=== PATIENT | female | born 1955 | race Caucasian/White ===

== ENCOUNTER 2019-10-01 20:24 | Observation (INO) | payer SELFPAY ==
[2019-10-01] VITALS (8 sets, daily range): BP systolic 131–176; BP diastolic 70–93; PULSE 81–125; RESP 20–24; TEMP 37.2; O2SAT 88–98
--- NOTE | ~2019-10-01 | XR_ITS ---
EXAMINATION: XR chest 2V DATE: 10/01/2019 21:15 INDICATION: COPD presenting with cough and shortness of breath TECHNIQUE: PA and lateral views of the chest were obtained. COMPARISON: Chest radiograph dated 01/07/2019 FINDINGS: Bronchial wall thickening and new airspace opacities in the right mid and bilateral lower lung zones concerning for pneumonia. No pleural effusion or pneumothorax. The cardiomediastinal silhouette is no rmal. Thoracolumbar dextroscoliosis with mild to moderate spondylosis. Cholecystectomy clips in the r ight upper quadrant. IMPRESSION: 1. Patchy airspace opacities in the right mid and bilateral lower lung zones concerning for pneumonia . Reviewed, dictated and finalized at location A. ENGINEER IMPRESSION: 1. Patchy airspace opacities in the right mid and bilateral lower lung zones co ncerning for pneumonia.
--- NOTE | 2019-10-01 20:53 | ED.SOB ---
HPI - SOB/Dyspnea General Chief Complaint: Shortness of Breath/Dyspnea Stated Complaint: Cough and congestion Time Seen by Provider: 10/01/19 20:53 Source: patient Mode of arrival: ambulatory Limitations: no limitations History of Present Illness HPI Narrative: 63-year-old woman with a history of type 2 diabetes, COPD and pneumonia comes in today complaining of 2 weeks of progressively worse cough and shortness of breath. She states her cough is productive of green sputum and she has some chest pain but only when she coughs. Last breathing treatment was this morning. She had some vomiting 3 days ago. She denies abdominal pain, fever, diarrhea, calf tenderness, and rash. MD elicited complaint: shortness of breath and cough Pertinent past history: COPD, diabetes and pneumonia Onset (ago): week(s) (2) Context: recent illness Timing: constant and progressively worsening Severity: moderate Exacerbating factors: lying flat, coughing and deep breaths Relieving factors: nothing Known history of: COPD and diabetes Associated symptoms: chest pain, cough, wheezing, sputum production and nausea/vomiting Treatment prior to arrival: bronchodilator Related Data Home oxygen amount: 2 liters (at night) Home Medications Medication Instructions Recorded Confirmed albuterol sulfate [ProAir HFA] 2 puff INHALATION QID PRN 10/01/19 10/01/19 fluoxetine 60 mg PO DAILY 10/01/19 10/01/19 furosemide [Lasix] 40 mg PO DAILY 10/01/19 10/01/19 insulin glargine [Lantus U-100 See Rx Instructions .ROUTE .COMPLEX 10/01/19 10/01/19 Insulin] insulin lispro [Humalog U-100 25 unit SUBCUT TIDWM 10/01/19 10/01/19 Insulin] lisinopril 20 mg PO DAILY 10/01/19 10/01/19 metoprolol tartrate 50 mg PO Q12H 10/01/19 10/01/19 pravastatin 20 mg PO DAILY 10/01/19 10/01/19 ranitidine HCl 150 mg PO BID 10/01/19 10/01/19 zolpidem 10 mg PO HS 10/01/19 10/01/19 Allergies Allergy/AdvReac Type Severity Reaction Status Date / Time No Known Allergies Allergy Verified 10/01/19 20:57 Review of Systems Constitutional: Constitutional: Denies chills, Reports fatigue, Denies fever(s) and Denies weakness Eyes: Eyes: Denies change in vision and Denies photophobia ENT: Denies dysphagia, Reports nasal congestion and Denies sore throat Cardiovascular: Cardiovascular: Reports chest pain and Denies radiating jaw, neck or arm pain Respiratory: Respiratory: Reports as per HPI, Reports chest congestion, Reports cough, Reports dyspnea and Reports wheezing Gastrointestinal: Gastrointestinal: Reports as per HPI, Denies abdominal pain, Denies nausea and Reports vomiting Genitourinary: Genitourinary: Denies hematuria and Denies dysuria Musculoskeletal: Musculoskeletal: Denies arthralgias and Denies joint swelling Integumentary/Breasts: Skin/Breast: Denies pruritus, Denies erythema and Denies rash Neurologic: Denies vertigo, Denies dizziness and Denies syncope Psychiatric: Psychiatric: Denies anxiety and Denies depression Hematologic/Lymphatic: Hematologic/Lymphatic: Denies easy bleeding and Denies easy bruising Allergic/Immunologic: Allergic/Immunologic: Denies lip swelling, Denies throat swelling and Reports wheezing PMFSH Past Medical History Medical History Anxiety COPD (chronic obstructive pulmonary disease) Dyslipidemia GERD (gastroesophageal reflux disease) Hypertension T2DM (type 2 diabetes mellitus) Surgical History Surgical History H/O section Hx of appendectomy Hx of cholecystectomy Social History Social History (Updated 10/01/19 @ 22:17 by Berlin Coleman MD) Smoking status: Never smoker Alcohol intake: never Substance use: never Living arrangements: with family Exam Const: General: alert Nutritional Appearance: obese Orientation/consciousness: patient oriented x3 Limitations: no limitations Other: [id number]
[2019-10-01] MEDS: IPRATROPIUM 0.5 MG/ALBUTEROL SULFATE 2.5 MG AMPUL.NEB 3 ML INHALATION (21:19)
[2019-10-01] MEDS: methylPREDNISolone SOD SUCC 40 MG VIAL 80 MG IV PUSH (21:23)
--- NOTE | 2019-10-01 21:23 | ECG_ITS ---
Measurements Intervals [place] Rate: 125 P: 68 VA: 154 QRS: -41 QRSD: 82 T: 52 QT: 322 QTc: 465 Interpretive Statements SINUS TACHYCARDIA LEFT AXIS DEVIATION DELAYED PRECORDIAL R/S TRANSITION BASELINE ARTIFACT- I, III, AVR, AVL, AVF, V2 ABNORMAL ECG Electronically Signed On 10-02-2019 7:36:48 MIXER LEVER OPERATOR by Amanuel Quiroga D.O.
[2019-10-01] MEDS: ALBUTEROL SULFATE NEB 2.5 MG/3 ML INH INHALATION (21:25)
[2019-10-01] MEDS: SODIUM CHLORIDE 0.9% IV 500 ML 999 ML IV CONT (21:33)
[2019-10-01 21:38] LABS: Influenza Control Valid (Valid)
--- NOTE | 2019-10-01 22:05 | PC.NURSE ---
Pt attempted to provide urine sample. pt unable to provide at this time. edp aware, edp does not want antibiotics started until urine sample obtained.
[2019-10-01 22:26] LABS: Basophils Absolute Auto 0.03 K/mm3 (0.00-0.10); Basophils Percent Auto 0.3 % (0.0-1.0); Hematocrit 38.2 % (35.0-42.0); Hemoglobin 12.3 g/dL (11.7-13.8); Immature Granulocyte Absolute 0.09 K/mm3 (0.00-0.00); Immature Granulocyte Percent A 0.8 % (0.0-0.0); Lymphocytes Absolute Auto 1.29 K/mm3 (1.10-4.50); Lymphocytes Percent Auto 11.5 % (18.0-42.0); Mean Corpuscular HGB Conc 32.2 g/dL (32.0-36.0); Mean Corpuscular Hemoglobin 31.5 pg (27.0-31.0); Mean Corpuscular Volume 97.7 fL (78.0-102.0); Mean Platelet Volume 10.6 fl (9.2-11.8); Monocytes Absolute Auto 0.77 K/mm3 (0.10-0.90); Monocytes Percent Auto 6.9 % (2.0-11.0); Neutrophils Absolute Auto 9.1 K/mm3 (1.7-7.2); Neutrophils Percent Auto 80.5 % (50.0-70.0); Platelet Count Result 375 K/mm3 (150-420); Red Blood Count 3.91 M/mm3 (4.20-5.40); Red Cell Distribution Width 12.9 % (11.6-14.4); White Blood Count 11.2 K/mm3 (4.8-10.8)
[2019-10-01 22:40] LABS: Partial Thromboplastin Time 33.9 SEC (22.3-31.6); Prothrombin Time 10.4 Seconds (9.64-11.0)
[2019-10-01 22:41] LABS: Alanine Aminotransferase 15 U/L (14-59); Alkaline Phosphatase 92 U/L (46-116); Aspartate Amino Transferase 13 U/L (15-37); Bilirubin,Total 0.4 mg/dL (0.00-1.00); Blood Urea Nitrogen 25 mg/dL (7-18); Calcium 9.9 mg/dL (8.5-10.1); Carbon Dioxide 22 mmol/L (21-32); Chloride 101 mmol/L (98-108); Estimated CRCL calculation 33 ml/min; Estimated Glomerular Filt Rate 32; Glucose 213 mg/dL (70-99); Osmolality Calculated 296 mOsm/kg (285-295); Sodium 138 mmol/L (136-145); Total Protein 8.4 g/dL (6.4-8.2)
[2019-10-01 22:46] LABS: Lactic Acid Reflex 1.5 mmol/L (0.4-2.0)
[2019-10-01 22:47] LABS: CRP < 0.2 mg/dL (0.0-0.9)
[2019-10-01 22:56] LABS: Add Urine Microscopic? YES; Appearance Urine Cloudy (Clear); Bilirubin Urine Negative (Negative); Blood Urine 2+ (Negative); Color Urine Yellow (Yellow); Glucose Urine UA Negative (Negative); Ketones Urine 1+ (Negative); Leukocyte Esterase Ur 2+ LEU/UL (Negative); Nitrate Urine Negative (Negative); Protein Urine 2+ (Negative); Specific Grav Ur 1.015 (1.010-1.020); Urobilinogen Urine 0.2 mg/dL (0.2-1.0)
[2019-10-01 23:03] LABS: Squamous Epithelial Cell Urine Many /hpf (Few); WBC Urine >75 /hpf (0-3)
[2019-10-01 23:04] LABS: Bacteria Urine 4+ /hpf
--- NOTE | 2019-10-01 23:11 | PC.NURSE ---
REPORT TO RAE HUTCHISON
[2019-10-02] VITALS (18 sets, daily range): BP systolic 129–156; BP diastolic 66–78; PULSE 74–110; RESP 16–22; TEMP 36.3–36.6; O2SAT 93–96; BMI 43.0
[2019-10-02] MEDS: METOPROLOL TARTRATE 50 MG TAB PO ×3 (01:39→22:55)
[2019-10-02] MEDS: IPRATROPIUM 0.5 MG/ALBUTEROL SULFATE 2.5 MG AMPUL.NEB 3 ML INHALATION ×5 (01:39→23:39)
[2019-10-02] MEDS: SODIUM CHLORIDE 0.9% IV 1,000 ML 50 ML IV CONT (01:54)
--- NOTE | 2019-10-02 02:36 | ADMGEN ---
This patient, Vivian Carney, was admitted to 2nd Floor Room 208-2. Patient oriented to hospital policies and general routines including ID bracelet, bed and alarms, visiting hours, pain management, procedures, bathroom and other care routines, personal items, smoking policy, room service/diet, and visiting hours. Valuables list includes clothing, coat, house slippers, cell phone and cane. Information on how to activate the Rapid Response Team has been discussed. Patient are encouraged to report perceived risks to care and to ask questions if they do not understand what they are told or what they should do.
--- NOTE | 2019-10-02 03:01 | PC.NURSE ---
0150 [facility] pharmacy called and made recommendations for changes in frequency of pt's ranitidine.
[2019-10-02 06:13] LABS: Basophils Absolute Auto 0.03 K/mm3 (0.00-0.10); Basophils Percent Auto 0.3 % (0.0-1.0); Eosinophils Absolute Auto 0.01 K/mm3 (0.02-0.50); Eosinophils Percent Auto 0.1 % (1.0-6.0); Hematocrit 37.1 % (35.0-42.0); Hemoglobin 11.9 g/dL (11.7-13.8); Immature Granulocyte Absolute 0.14 K/mm3 (0.00-0.00); Immature Granulocyte Percent A 1.4 % (0.0-0.0); Lymphocytes Absolute Auto 0.29 K/mm3 (1.10-4.50); Mean Corpuscular HGB Conc 32.1 g/dL (32.0-36.0); Mean Corpuscular Hemoglobin 31.9 pg (27.0-31.0); Mean Corpuscular Volume 99.5 fL (78.0-102.0); Mean Platelet Volume 11.4 fl (9.2-11.8); Neutrophils Absolute Auto 9.2 K/mm3 (1.7-7.2); Neutrophils Percent Auto 94.2 % (50.0-70.0); Platelet Count Result 286 K/mm3 (150-420); Red Blood Count 3.73 M/mm3 (4.20-5.40); Red Cell Distribution Width 12.8 % (11.6-14.4); White Blood Count 9.8 K/mm3 (4.8-10.8)
[2019-10-02 06:25] LABS: Alanine Aminotransferase 14 U/L (14-59); Albumin Level 2.7 g/dL (3.4-5.0); Alkaline Phosphatase 92 U/L (46-116); Anion Gap 18.5 mmol/L (7-16); Aspartate Amino Transferase 16 U/L (15-37); Bilirubin,Total 0.3 mg/dL (0.00-1.00); Blood Urea Nitrogen 25 mg/dL (7-18); Calcium 9.3 mg/dL (8.5-10.1); Carbon Dioxide 22 mmol/L (21-32); Chloride 101 mmol/L (98-108); Estimated CRCL calculation 37 ml/min; Estimated Glomerular Filt Rate 37; Osmolality Calculated 305 mOsm/kg (285-295); Potassium 5.5 mmol/L (3.5-5.1); Sodium 136 mmol/L (136-145)
[2019-10-02 06:38] LABS: Glucose 434 mg/dL (70-99)
[2019-10-02] MEDS: methylPREDNISolone SOD SUCC 40 MG VIAL IV PUSH ×2 (09:51→22:55)
[2019-10-02] MEDS: lisinopriL 20 MG TABLET PO (09:52)
[2019-10-02] MEDS: FUROSEMIDE 40 MG TABLET PO (09:52)
[2019-10-02] MEDS: FLUOXETINE HCL 10 MG CAPSULE 60 MG PO (09:52)
[2019-10-02] MEDS: PRAVASTATIN SODIUM 20 MG TABLET PO (09:53)
[2019-10-02 10:08] LABS: Glucose Point of Care 390 (65-105)
--- NOTE | 2019-10-02 10:35 | PC.NURSE ---
Patient sleeping in bed quietly. Shows no signs of distress. Call light at side.
[2019-10-02 11:37] LABS: Glucose Point of Care 323 (65-105)
[2019-10-02] MEDS: BENZONATATE 100 MG CAPSULE 200 MG PO ×2 (13:29→17:14)
--- NOTE | 2019-10-02 14:07 | PM.IMHP ---
H&P: HPI History of Present Illness Chief complaint: Cough and congestion <AGUSTIN Oro - Last Filed: 10/02/19 14:45> Narrative: Vivian Carney is a 63 year old female that presented with shortness of breath and dyspnea. Patient has a past medical history anxiety, COPD, dyslipidemia, GERD, hypertension, and type 2 diabetes. According to the patient restarting coughing 3 weeks ago. she had a productive cough with greenish sputum. She also noted that she had nausea and vomiting a couple times with diarrhea. She also reported a feeling fatigued and dysuria while urinating. She noted that she uses home oxygen and also experience shortness of breath and dyspnea during that time. She decided to come to the ED once her cough became uncontrollable. Her vital signs 74 20, 93% 2 L nasal cannula , 65.5 and 155/66. She is being admitted for pneumonia and UTI with acute on chronic renal failure. While in the ER a chest x-ray was completed which indicated pneumonia a EKG indicated sinus tach heart rate in 125, UA positive for leukocytes and bacteria. Blood culture UA culture pending, white blood cells 11.2. Patient was given azithromycin Rocephin and Solu-Medrol and breathing treatments while in the ED. Patient denies CP, palpitation, extremity numbness, lightheadness, dizziness, constipation, diarrhea, or chills or fever. if condition continues improved to discharge patient tomorrow <AGUSTIN Oro - Last Filed: 10/02/19 14:45> Review of Systems Constitutional: Constitutional: Reports fatigue, Denies fever(s), Denies headache(s) and Reports weakness <AGUSTIN Oro - Last Filed: 10/02/19 14:45> Cardiovascular: Cardiovascular: Denies chest pain, Denies chest pain at rest, Denies chest pain with activity, Denies radiating jaw, neck or arm pain, Denies palpitations and Reports dyspnea <AGUSTIN Oro - Last Filed: 10/02/19 14:45> Respiratory: Respiratory: Reports chest congestion, Reports cough, Denies hemoptysis, Reports dyspnea and Reports wheezing <AGUSTIN Oro - Last Filed: 10/02/19 14:45> Gastrointestinal: Gastrointestinal: Denies melena, Denies coffee ground emesis, Denies constipation, Reports diarrhea, Reports nausea and Reports vomiting <GAGAN OroDivya - Last Filed: 10/02/19 14:45> Genitourinary: Genitourinary: Denies hematuria and Reports dysuria <BOBO OroPDivya - Last Filed: 10/02/19 14:45> Musculoskeletal: Musculoskeletal: Reports no additional musculoskeletal complaints [facility] Last Filed: 10/02/19 14:45> Integumentary/Breasts: Skin/Breast: Reports system reviewed and no additional complaints, except as docu <GAGAN OroDivya Last Filed: 10/02/19 14:45> Neurologic: Reports system reviewed and no additional complaints, except as documented, Denies confusion, Denies vertigo, Denies dizziness, Denies syncope and Reports weakness <[facility] - Last Filed: 10/02/19 14:45> Psychiatric: Psychiatric: Reports no additional psychiatric complaints [facility] Last Filed: 10/02/19 14:45> [facility] Past Medical History Medical History: Medical History Anxiety COPD (chronic obstructive pulmonary disease) Dyslipidemia GERD (gastroesophageal reflux disease) Hypertension T2DM (type 2 diabetes mellitus) <[facility] - Last Filed: 10/02/19 14:45> Surgical History Surgical History: Surgical History H/O section Hx of appendectomy Hx of cholecystectomy [facility] Last Filed: 10/02/19 14:45> Social History Social History: Social History (Updated 10/01/19 @ 22:17 by Berlin Coleman MD) Smoking status: Never smoker Alcohol intake: never Substance use: never Living arrangements: with family Gender identity (if verbalized by the
--- NOTE | 2019-10-02 14:35 | PC.NURSE ---
Patient sleeping quietly in bed on left side. IV fluids cont. per order. Call light at side. No distress noted.
--- NOTE | 2019-10-02 15:35 | PC.NURSE ---
Patient sleeping quietly in bed on left side. Shows no signs of distress. Call light at side.
[2019-10-02] MEDS: PANTOPRAZOLE 40 MG TABLET PO (17:14)
[2019-10-02 17:22] LABS: Glucose Point of Care 184 (65-105)
--- NOTE | 2019-10-02 19:14 | PC.NURSE ---
Pt sitting up in bed watching tv, denies any sob at this time, tolerating oral fluids and foods, denies any needs at this time.
--- NOTE | 2019-10-02 20:40 | PC.NURSE ---
Pt sitting up in bed watching tv, denies any sob at this time.
[2019-10-02] MEDS: ZOLPIDEM TARTRATE 5 MG TABLET 10 MG PO (21:02)
--- NOTE | 2019-10-02 21:10 | PC.NURSE ---
pt given medications, no sob with conversation, pt's iv in left hand occluded, antibiotic paused at this time.
--- NOTE | 2019-10-02 21:16 | P.PNCROSS_ITS ---
Event Note Event Note Event Note: I reviewed Bogdan Mcfarlane, SVP [employer]EARCH AND STRATEGIC ANALYSIS note, discussed case and examined patient. Pt. is up and walking to b.r. Bibasilar rales on exam without elevated JVD. I agree with plan to d.c. tomorrow oj noral antibiotics provided pulse ox, BUN/Cr are stable.
[2019-10-02 21:17] LABS: Glucose Point of Care 293 (65-105)
--- NOTE | 2019-10-02 21:40 | PC.NURSE ---
New iv placed, old one removed, pt tolerated well
--- NOTE | 2019-10-02 22:50 | PC.NURSE ---
pt resting in bed with eyes closed, denies any needs at this time, denies any complaints
[2019-10-02] MEDS: FAMOTIDINE 20 MG TABLET PO (23:04)
--- NOTE | 2019-10-02 23:24 | PC.NURSE ---
pt sleeping, no evidence of distress noted, respirations even and regular.
--- NOTE | 2019-10-03 00:08 | PC.NURSE ---
pt sleeping, no evidence of distress noted, call light and belongings within reach
--- NOTE | 2019-10-03 01:15 | PC.NURSE ---
pt sleeping, respirations even and regular, no evidence of distress noted
--- NOTE | 2019-10-03 02:43 | PC.NURSE ---
pt sleeping, no evidence of distress noted, Call light and belongings within reach
--- NOTE | 2019-10-03 03:30 | PC.NURSE ---
pt sleeping, respirations even and regular, no evidence of distress noted, call light and belongings within reach.
--- NOTE | 2019-10-03 04:15 | PC.NURSE ---
pt sleeping, respirations even and regular, no evidence of distress noted, call light and belongings within reach.
[2019-10-03 05:31] LABS: Hematocrit 34.3 % (35.0-42.0); Hemoglobin 11.2 g/dL (11.7-13.8); Mean Corpuscular HGB Conc 32.7 g/dL (32.0-36.0); Mean Corpuscular Hemoglobin 31.1 pg (27.0-31.0); Mean Corpuscular Volume 95.3 fL (78.0-102.0); Mean Platelet Volume 10.3 fl (9.2-11.8); Platelet Count Result 344 K/mm3 (150-420); Red Cell Distribution Width 12.3 % (11.6-14.4); White Blood Count 9.6 K/mm3 (4.8-10.8)
--- NOTE | 2019-10-03 05:35 | PC.NURSE ---
pt up to bathroom, had incontinent episode, ambulated with contact guard and cane, tolerated well, bed linens changed, pt cleaned with bath cloths, ambulated back to bed same way, denies any other needs, RT came in to do tx
[2019-10-03 05:52] LABS: Anion Gap 12.9 mmol/L (7-16); Blood Urea Nitrogen 33 mg/dL (7-18); Calcium 9.2 mg/dL (8.5-10.1); Carbon Dioxide 26 mmol/L (21-32); Chloride 100 mmol/L (98-108); Estimated CRCL calculation 39 ml/min; Estimated Glomerular Filt Rate 38; Glucose 260 mg/dL (70-99); Osmolality Calculated 294 mOsm/kg (285-295); Potassium 4.9 mmol/L (3.5-5.1); Sodium 134 mmol/L (136-145)
[2019-10-03] MEDS: IPRATROPIUM 0.5 MG/ALBUTEROL SULFATE 2.5 MG AMPUL.NEB 3 ML INHALATION ×2 (05:53→13:08)
[2019-10-03 05:54] VITALS: PULSE 78; RESP 16
[2019-10-03 06:05] VITALS: PULSE 78; RESP 16
--- NOTE | 2019-10-03 07:30 | PC.NURSE ---
Ate well, no n/v, tolerating oral fluisd well, cough less severe, PO 94%
[2019-10-03 07:32] LABS: Glucose Point of Care 305 (65-105)
[2019-10-03 07:48] VITALS: BP 158/77; PULSE 80; RESP 18; TEMP 36.3; O2SAT 97
--- NOTE | 2019-10-03 08:35 | PC.NURSE ---
sitting on edge of bed, no distress noted, no n/v, tolerating fluids well
[2019-10-03] MEDS: BENZONATATE 100 MG CAPSULE 200 MG PO ×2 (09:22→12:55)
[2019-10-03] MEDS: FLUOXETINE HCL 10 MG CAPSULE 60 MG PO (09:22)
[2019-10-03] MEDS: PRAVASTATIN SODIUM 20 MG TABLET PO (09:24)
[2019-10-03] MEDS: FUROSEMIDE 40 MG TABLET PO (09:24)
[2019-10-03] MEDS: lisinopriL 20 MG TABLET PO (09:24)
--- NOTE | 2019-10-03 09:25 | PC.NURSE ---
Meds administered, uses oxygen when sleeping only, napping off and on since breakfast, color pink, warm and dry
[2019-10-03 10:08] VITALS: PULSE 91
[2019-10-03] MEDS: METOPROLOL TARTRATE 50 MG TAB PO (10:08)
[2019-10-03] MEDS: methylPREDNISolone SOD SUCC 40 MG VIAL IV PUSH (10:08)
--- NOTE | 2019-10-03 10:32 | PC.NURSE ---
Resting in bed, solumedrol given, oxygen on since napping, saturation 94%
--- NOTE | 2019-10-03 11:07 | PC.NURSE ---
Resting in bed, no distress noted
--- NOTE | 2019-10-03 11:10 | PM.DS ---
DS: Diagnosis Admitting Diagnosis Admitting Diagnosis: Pneumonia, unspecified organism Discharge Diagnosis (1) Community acquired pneumonia: Qualifiers: Laterality: right Lung location: lower lobe of lung Qualified Code(s): J18.9 - Pneumonia, unspecified organism Code(s): J18.9 - Pneumonia, unspecified organism Status: Acute Assessment and Plan: * Chest x-ray indicates Patchy airspace opacities in the right mid and bilateral lower lung zones concerning for pneumonia. *WBC within normal limits. * discharge with azithromycin, Rocephin, Solu-Medrol and breathing treatment. * discharged with cough suppressant and anti decongestant * patient afebrile * blood culture pending (2) Acute on chronic renal failure: Qualifiers: Acute renal failure type: unspecified Chronic kidney disease stage: stage 3 (moderate) Qualified Code(s): N17.9 - Acute kidney failure, unspecified; N18.3 - Chronic kidney disease, stage 3 (moderate) Code(s): N17.9 - Acute kidney failure, unspecified; N18.9 - Chronic kidney disease, unspecified Status: Acute Assessment and Plan: Improving in stable * possibly secondary to infection. (3) UTI (urinary tract infection): Qualifiers: Hematuria presence: without hematuria Urinary tract infection type: acute cystitis Qualified Code(s): N30.00 - Acute cystitis without hematuria Code(s): N39.0 - Urinary tract infection, site not specified Status: Acute Assessment and Plan: UA indicate leukocytes and bacteria present. *UA culture and sensitive pending. *Continue antibiotics (4) COPD (chronic obstructive pulmonary disease): Code(s): J44.9 - Chronic obstructive pulmonary disease, unspecified Status: Acute Assessment and Plan: probably worsened by pneumonia. * refer to pneumonia (5) GERD (gastroesophageal reflux disease): Code(s): K21.9 - Gastro-esophageal reflux disease without esophagitis Status: Acute Assessment and Plan: started Protonix (6) Hypertension: Code(s): I10 - Essential (primary) hypertension Status: Acute Assessment and Plan: *blood pressure stable *continue lisinopril and metoprolol (7) T2DM (type 2 diabetes mellitus): Code(s): E11.9 - Type 2 diabetes mellitus without complications Status: Acute Assessment and Plan: blood pressure slightly elevated due to use of steroids patient will discharge home with home insulin and continue the sliding scale until prednisone is completed. DS: Summary Hospital Course Hospital Course: H&P from the admission of 10/01: Narrative: Vivian Carney is a 63 year old female that presented with shortness of breath and dyspnea. Patient has a past medical history anxiety, COPD, dyslipidemia, GERD, hypertension, and type 2 diabetes. According to the patient restarting coughing 3 weeks ago. she had a productive cough with greenish sputum. She also noted that she had nausea and vomiting a couple times with diarrhea. She also reported a feeling fatigued and dysuria while urinating. She noted that she uses home oxygen and also experience shortness of breath and dyspnea during that time. She decided to come to the ED once her cough became uncontrollable. Her vital signs 74 20, 93% 2 L nasal cannula , 65.5 and 155/66. She is being admitted for pneumonia and UTI with acute on chronic renal failure. While in the ER a chest x-ray was completed which indicated pneumonia a EKG indicated sinus tach heart rate in 125, UA positive for leukocytes and bacteria. Blood culture UA culture pending, white blood cells 11.2. Patient was given azithromycin Rocephin and Solu-Medrol and breathing treatments while in the ED. Patient denies CP, palpitation, extremity numbness, lightheadness, dizziness, constipation, diarrhea, or chills or fever. if condition continues im
--- NOTE | 2019-10-03 11:24 | PC.NURSE ---
bedside glucose check 499 or over, hospitalist notified, order received,
[2019-10-03 11:25] LABS: Glucose Point of Care > 450 (65-105)
[2019-10-03 12:15] LABS: Glucose 510 mg/dL (70-99)
--- NOTE | 2019-10-03 12:30 | PC.NURSE ---
glucose via lab results noted to be 510, insulin given as ordered
[2019-10-03 13:09] VITALS: PULSE 76; RESP 16
[2019-10-03 13:19] VITALS: PULSE 77; RESP 16
[2019-10-03 13:58] LABS: Glucose Point of Care 266 (65-105)
--- NOTE | 2019-10-03 14:05 | PC.NURSE ---
Bedside glucose recheck 266, states ride will not be here until 1430, will wait to dress till then
== END 2019-10-03 16:15 | disposition home or self-care (01) ==
LOC: CHSED 23:13 → CHS2ND 23:25
PROVIDERS: Nurse Practitioner; Admitting Provider Emergency Medicine; Emergency Provider Emergency Medicine; PCP Family Medicine; Visit Provider Emergency Medicine
DX: J18.9 Pneumonia, unspecified organism (principal); J44.1 Chronic obstructive pulmonary disease with (acute) exacerbation; N39.0 Urinary tract infection, site not specified; N17.9 Acute kidney failure, unspecified; N18.3 Chronic kidney disease, stage 3 (moderate); I12.9 Hypertensive chronic kidney disease with stage 1 through stage 4 chronic kidney disease, or unspecified chronic kidney disease; E11.22 Type 2 diabetes mellitus with diabetic chronic kidney disease; K21.9 Gastro-esophageal reflux disease without esophagitis; E78.5 Hyperlipidemia, unspecified
CPT/HCPCS: 36415; 51701; 71046; 80048; 80053; 81001; 82947; 83605; 85025; 85027; 85610; 85730; 86140; 87040; 87086; 87088; 87804; 93005; 94640; 96361; 96365; 96366; 96367; 96374; 96375; 96376; 99285; A9270; G0378; G0379; J0456; J0696; J1815; J2920; J7030; J7040

== ENCOUNTER 2020-03-07 18:40 | Emergency (ER) | payer MEDICARE, SELFPAY ==
--- NOTE | ~2020-03-07 | XR_ITS ---
EXAMINATION: XR shoulder RT min 2V EXAM DATE: 03/07/2020 19:37 INDICATION: Initial encounter following injury, with pain of the right shoulder. Fall. TECHNIQUE: The following right shoulder projections obtained: frontal projection with internal rotati on, frontal projection with external rotation, Grashey, and scapular Y view (4+ views). There is no prior study for comparison. FINDINGS: No evidence of right shoulder rotator cuff calcific tendinosis. There is moderate acromi oclavicular joint primary osteoarthritis. There are no acute fractures or dislocations identified. T here is no subcutaneous gas. The soft tissue is unremarkable. There are no radiopaque foreign bodi es. IMPRESSION: No acute osseous findings. Reviewed, dictated and finalized at location A. IMPRESSION: No acute osseous findings.
[2020-03-07 18:40] VITALS: BP 166/88; PULSE 70; RESP 20; TEMP 36.6; O2SAT 100
--- NOTE | 2020-03-07 18:50 | ECG_ITS ---
Measurements Intervals [place] Rate: 65 P: 60 [place]: 148 QRS: 83 QRSD: 81 T: 58 QT: 416 QTc: 435 Interpretive Statements SINUS RHYTHM BASELINE ARTIFACT- I, III, AVL, AVF, V5 NORMAL ECG Electronically Signed On 03-08-2020 7:02:34 CDT by Amanuel Quiroga D.O.
--- NOTE | 2020-03-07 18:54 | ED.FALL ---
HPI - Fall General Chief Complaint: Fall Stated Complaint: AMB Source: patient and EMS Mode of arrival: EMS Limitations: no limitations History of Present Illness HPI Narrative: Vivian is a 64F with a PMH of CVA, DMII, COPD, GERD, HTN, and anxiety that presented to the ED by EMS after a fall. She was getting up from the toilet and raising her pullups when she became lightheaded. She tried to catch herself on a trash can but could not and fell over. She fell and was not able to get up on her own or with her daughters help so EMS was called. They were able to help her up. She did not hit her head or neck during the fall and did not lose consciousness. She only reports pain in her right shoulder. No current GONZALES, vision changes, CP, SOB, dizziness, N/V/D. She does report that she has had numbness in her right arm for 2 weeks. She also reports a foul smelling rash under her breasts for a couple days as well. Related Data Home Medications Medication Instructions Recorded Confirmed Lantus U-100 Insulin See Rx Instructions .ROUTE .COMPLEX 10/01/19 10/01/19 albuterol sulfate [ProAir HFA] 2 puff INHALATION QID PRN 10/01/19 10/01/19 fluoxetine 60 mg PO DAILY 10/01/19 10/01/19 furosemide [Lasix] 40 mg PO DAILY 10/01/19 10/01/19 lisinopril 20 mg PO DAILY 10/01/19 10/01/19 metoprolol tartrate 50 mg PO Q12H 10/01/19 10/01/19 pravastatin 20 mg PO DAILY 10/01/19 10/01/19 ranitidine HCl 150 mg PO BID 10/01/19 10/01/19 zolpidem 10 mg PO HS 10/01/19 10/01/19 Allergies Allergy/AdvReac Type Severity Reaction Status Date / Time No Known Allergies Allergy Verified 10/01/19 20:57 Review of Systems Constitutional: Constitutional: Reports as per HPI, Reports no additional constitutional complaints, Denies chills and Denies fever(s) Eyes: Eyes: Reports no additional eye complaints ENT: Reports system reviewed and no additional complaints, except as documented Cardiovascular: Cardiovascular: Denies chest pain, Denies rapid heart rate and Denies radiating jaw, neck or arm pain Respiratory: Respiratory: Reports no additional respiratory complaints and Reports cough Gastrointestinal: Gastrointestinal: Reports no additional gastrointestinal complaints Genitourinary: Genitourinary: Reports no additional female genitourinary complaints Musculoskeletal: Musculoskeletal: Reports as per HPI Integumentary/Breasts: Skin/Breast: Reports as per HPI Neurologic: Comments: reports occasional touble with speech and memory after her CVA Psychiatric: Psychiatric: Reports no additional psychiatric complaints Endocrine: Endocrine: Reports no additional endocrine complaints Hematologic/Lymphatic: Hematologic/Lymphatic: Reports no additional hematologic/lymphatic complaints Allergic/Immunologic: Allergic/Immunologic: Reports no additional allergic/immunologic complaints [facility] Past Medical History Medical History Anxiety COPD (chronic obstructive pulmonary disease) Dyslipidemia GERD (gastroesophageal reflux disease) Hypertension T2DM (type 2 diabetes mellitus) Surgical History Surgical History H/O section Hx of appendectomy Hx of cholecystectomy Social History Social History Smoking status: Never smoker Alcohol intake: never Substance use: never Gender identity (if verbalized by the patient): Female Spiritual care concerns: No Agree to blood products: Yes Exam Const: General: no acute distress and alert Orientation/consciousness: patient oriented x3 Limitations: No altered mental status HENMT: Other: Normocephalic, atraumatic, EOMI Eyes: Conjunctivae: conjunctivae normal Pupils: Equal, round and reactive pupils present Neck: Neck: normal visual inspection Other: No midline tenderness. Able to touch her chin to each shoulder, flex and extend without pa
[2020-03-07 19:14] LABS: Basophils Absolute Auto 0.06 K/mm3 (0.00-0.10); Basophils Percent Auto 0.9 % (0.0-1.0); Eosinophils Absolute Auto 0.15 K/mm3 (0.02-0.50); Eosinophils Percent Auto 2.3 % (1.0-6.0); Hematocrit 33.6 % (35.0-42.0); Hemoglobin 10.7 g/dL (11.7-13.8); Immature Granulocyte Absolute 0.05 K/mm3 (0.00-0.00); Immature Granulocyte Percent A 0.8 % (0.0-0.0); Lymphocytes Absolute Auto 0.81 K/mm3 (1.10-4.50); Lymphocytes Percent Auto 12.4 % (18.0-42.0); Mean Corpuscular HGB Conc 31.8 g/dL (32.0-36.0); Mean Corpuscular Hemoglobin 32.6 pg (27.0-31.0); Mean Corpuscular Volume 102.4 fL (78.0-102.0); Monocytes Absolute Auto 0.55 K/mm3 (0.10-0.90); Monocytes Percent Auto 8.4 % (2.0-11.0); Neutrophils Absolute Auto 4.9 K/mm3 (1.7-7.2); Neutrophils Percent Auto 75.2 % (50.0-70.0); Platelet Count Result 235 K/mm3 (150-420); Red Blood Count 3.28 M/mm3 (4.20-5.40); Red Cell Distribution Width 13.5 % (11.6-14.4); White Blood Count 6.5 K/mm3 (4.8-10.8)
[2020-03-07 19:28] LABS: Alanine Aminotransferase 18 U/L (14-59); Albumin Level 3.3 g/dL (3.4-5.0); Alkaline Phosphatase 85 U/L (46-116); Anion Gap 8.5 mmol/L (7-16); Aspartate Amino Transferase 11 U/L (15-37); Bilirubin,Total 0.5 mg/dL (0.00-1.00); Blood Urea Nitrogen 27 mg/dL (7-18); Calcium 8.6 mg/dL (8.5-10.1); Carbon Dioxide 31 mmol/L (21-32); Chloride 102 mmol/L (98-108); Estimated CRCL calculation 31 ml/min; Estimated Glomerular Filt Rate 30; Glucose 376 mg/dL (70-99); Osmolality Calculated 304 mOsm/kg (285-295); Potassium 4.5 mmol/L (3.5-5.1); Sodium 137 mmol/L (136-145); Total Protein 6.7 g/dL (6.4-8.2)
[2020-03-07 19:31] LABS: BNP 191 pg/mL (0-100)
[2020-03-07 19:32] LABS: Ethanol < 3 mg/dL (0-6); Troponin I < 0.02 ng/mL (0.00-0.056)
[2020-03-07 19:55] LABS: Amphetamine Screen Urine Negative (Negative); Barbiturate Screen Urine Negative (Negative); Benzodiazepines Screen Urine Negative (Negative); Cannabinoid Screen Urine Negative (Negative); Cocaine Screen Urine Negative (Negative); Methadone Screen Urine Negative (Negative); Opiate Screen Urine Negative (Negative); Phencyclidine Screen Urine Negative (Negative)
[2020-03-07 20:22] VITALS: BP 157/63; PULSE 65; RESP 18; O2SAT 99
--- NOTE | 2020-03-07 20:22 | ED.GENADULT ---
HPI - General Adult General Chief complaint: Fall Stated complaint: AMB Source: patient and EMS Mode of arrival: EMS Limitations: no limitations History of Present Illness HPI narrative: HPI Narrative: Vivian is a 64F with a PMH of CVA, DMII, COPD, GERD, HTN, and anxiety that presented to the ED by EMS after a fall. She was getting up from the toilet and raising her pullups when she became lightheaded. She tried to catch herself on a trash can but could not and fell over. She fell and was not able to get up on her own or with her daughters help so EMS was called. They were able to help her up. She did not hit her head or neck during the fall and did not lose consciousness. She only reports pain in her right shoulder. No current GONZALES, vision changes, CP, SOB, dizziness, N/V/D. She does report that she has had numbness in her right arm for 2 weeks. She also reports a foul smelling rash under her breasts for a couple days as well. Related Data Home Medications Medication Instructions Recorded Confirmed Lantus U-100 Insulin 60 unit SUBCUT HS 10/01/19 03/07/20 albuterol sulfate [ProAir HFA] 2 puff INHALATION QID PRN 10/01/19 03/07/20 fluoxetine 60 mg PO DAILY 10/01/19 03/07/20 furosemide [Lasix] 40 mg PO DAILY 10/01/19 03/07/20 lisinopril 20 mg PO DAILY 10/01/19 03/07/20 metoprolol tartrate 50 mg PO Q12H 10/01/19 03/07/20 pravastatin 20 mg PO DAILY 10/01/19 03/07/20 ranitidine HCl 150 mg PO BID 10/01/19 03/07/20 zolpidem 10 mg PO HS 10/01/19 03/07/20 Allergies Allergy/AdvReac Type Severity Reaction Status Date / Time No Known Allergies Allergy Verified 10/01/19 20:57 Review of Systems Review of Systems: Narrative: Constitutional: Reports as per HPI, Reports no additional constitutional complaints, Denies chills and Denies fever(s) Eyes: Reports no additional eye complaints Reports system reviewed and no additional complaints, except as documented Cardiovascular: Denies chest pain, Denies rapid heart rate and Denies radiating jaw, neck or arm pain Respiratory: Reports no additional respiratory complaints and Reports cough Gastrointestinal: Reports no additional gastrointestinal complaints Genitourinary: Reports no additional female genitourinary complaints Musculoskeletal: Reports as per HPI Skin/Breast: Reports as per HPI Neuro: Comments: reports occasional touble with speech and memory after her CVA Psychiatric: Reports no additional psychiatric complaints Endocrine: Reports no additional endocrine complaints Hematologic/Lymphatic: Reports no additional hematologic/lymphatic complaints Allergic/Immunologic: Reports no additional allergic/immunologic complaints [facility] Past Medical History Medical History Anxiety COPD (chronic obstructive pulmonary disease) Dyslipidemia GERD (gastroesophageal reflux disease) Hypertension T2DM (type 2 diabetes mellitus) Surgical History Surgical History H/O section Hx of appendectomy Hx of cholecystectomy Social History Social History Smoking status: Never smoker Alcohol intake: never Substance use: never Gender identity (if verbalized by the patient): Female Spiritual care concerns: No Agree to blood products: Yes Exam Const: General: no acute distress and alert Orientation/consciousness: patient oriented x3 Limitations: No altered mental status HENMT: Other: normocephalic, atraumatic Eyes: Conjunctivae: conjunctivae normal Pupils: Equal, round and reactive pupils present Neck: Neck: normal visual inspection Other: no midline tenderness, painless full active ROM Chest: Chest palpation & inspection: normal inspection of the chest Resp: Effort & Inspection: normal respiratory effort, not labored and not tachypneic Auscultation: clear to auscultation bilate
== END 2020-03-07 21:35 | disposition home or self-care (01) ==
PROVIDERS: Emergency Provider Family Medicine
DX: S43.401A Unspecified sprain of right shoulder joint, initial encounter (principal); E11.65 Type 2 diabetes mellitus with hyperglycemia; Z79.4 Long term (current) use of insulin; L30.4 Erythema intertrigo; W19.XXXA Unspecified fall, initial encounter; J44.9 Chronic obstructive pulmonary disease, unspecified; E78.5 Hyperlipidemia, unspecified; K21.9 Gastro-esophageal reflux disease without esophagitis; I10 Essential (primary) hypertension; Z79.899 Other long term (current) drug therapy
CPT/HCPCS: 36415; 73030; 80053; 80307; 83880; 84484; 85025; 93005; 99283; 99284; A9270